=== PATIENT | female | born 1995 | race Caucasian/White ===

== ENCOUNTER 2018-03-18 14:00 | Emergency (ER) | payer OTHER ==
[2018-03-18 14:19] VITALS: O2SAT 100
--- NOTE | 2018-03-18 16:25 | C.PDOC ---
History Of Present Illness 22 year old female presents to the ED for evaluation of vulvar pain which began 3 days ago. Patient states she applied some cream/lotion to the vulvar area without help. She denies fever, chills, and being sexually active. Time Seen by Provider: 03/18/18 14:58 Chief Complaint (Nursing): GI Problem History Per: Patient History/Exam Limitations: no limitations Onset/Duration Of Symptoms: Days (3) Current Symptoms Are (Timing): Still Present Additional History Per: Patient Past Medical History Reviewed: Historical Data, Nursing Documentation, Vital Signs Vital Signs: Last Vital Signs Temp 97.7 F 03/18/18 14:17 Pulse 110 H 03/18/18 14:17 Resp 20 03/18/18 14:17 BP 123/86 03/18/18 14:17 Pulse Ox 100 03/18/18 14:17 - Medical History PMH: No Chronic Diseases Surgical History: No Surg Hx Family History: States: Unknown Family Hx - Social History Hx Alcohol Use: No Hx Substance Use: No Review Of Systems Constitutional: Negative for: Fever, Chills Genitourinary: Positive for: Other (vulvar pain ) Physical Exam - Physical Exam Appears: Non-toxic, No Acute Distress Skin: Normal Color, Warm, Dry Head: Atraumatic, Normacephalic Eye(s): bilateral: Normal Inspection Oral Mucosa: Moist Neck: Supple Chest: Symmetrical, No Deformity, No Tenderness Cardiovascular: Rhythm Regular, No Murmur Respiratory: Normal Breath Sounds, No Rales, No Rhonchi, No Wheezing Pelvic: No Normal Speculum Exam (deferred ), Vaginal Discharge (copious, watery white-blackwell ), Other (painful vessicular lesions, numbering from 40-50, to bilateral vulvar areas. 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 Patient declines visualization of the anal area. CG/Chlamydia swab and urinalysis ordered and reviewed. Tramadol PO given. Rocephin 250 IM, Azithro 1000 PO, Flagyl 500 PO, Motrin 600 PO. Initially, patient stated that she has not had any sexual relations. After evaluation by Dr. Ramsay ([employer] exchange underwriting consultant), patient admits she had one unprotexted sexual encounter for the first time. Patient is unable to specify when this encounter occurred. Reevaluation Time: 17:22 Reassessment Condition: Improved - Physician Consult Information Outcome Of Conversation: d/w OBGY Dr. Ramsay- evaluated pt and vulvar exam appreciated. Recommends complete STD tx. 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 Flagyl 500 mg PO BID x 7 days outpatient f/u with OBGYN Disposition Doctor Will See Patient In The: Office Counseled Patient/Family Regarding: Studies Performed, Diagnosis - Disposition Referrals: [employer] [facility] [Outside] [place] [facility] [place] [Outside] [facility] [Outside] [facility] [Outside] Disposition: HOME/ ROUTINE Disposition Time: 17:27 Condition: GOOD Additional Instructions: GC/Chlamydia You were treated with Rocephin 250 mg IM and Azithromycin 1000 mg by mouth This is complete treatment Bacterial Vaginosis: Vaginal Discharge Glagyl 500 mg twice a day for 7 days Genital Herpes: First outbreak Acyclovir 800 mg 5x/day for 10 days Pain: Motrin/Advil 600 mg every 6 hours as needed Tramadol 50 m-2 tabs every 4-6 hours as needed for more severe pain NO Sexual activity nor objects in vagina for 7 days Sexual Partner(s) must be also evaluated to risk re-contamination Follow-up with outpatient OBGYN Clinic for further testing as needed, ie: Syphilis, HIV, Hepatitis Prescriptions: Acyclovir [Zovirax] 800 mg PO 5XD 10 Days tablet metroNIDAZOLE [Flagyl] 500 mg PO BID #13 tab traMADol [Ultram] 50 mg PO Q6H #20 tab Instructions: Chlamydia and Gonorrhea, Genital Herpes (DC), Vaginal Discharge in Adults Forms: [employer] ([place]riac) - Clinical Impression Clinical Impression: Vulvar lesion, Vaginal discharge - Scribe Statement The provider has reviewed the documentation as recorded by the Scribe (Sary Gonzales) Provider Attestation: All medical record entries made by the Scribe were at my direction and personally dictated by me. I have reviewed the chart and agree that the record accurately reflects my personal performance of the history, physical exam, medical decision making, and the department course for this patient. I have also personally directed, reviewed, and agree with the discharge instructions and disposition.
[2018-03-18 16:38] LABS: HCG,QUALITATIVE URINE NEGATIVE (NEGATIVE)
[2018-03-18 16:39] LABS: SQUAMOUS EPITHIAL 2 /hpf (0-5); URINE BACTERIA OCC (<OCC); URINE BILIRUBIN NEGATIVE (NEGATIVE); URINE BLOOD NEGATIVE (NEGATIVE); URINE CLARITY Clear (Clear); URINE COLOR Straw (YELLOW); URINE GLUCOSE (UA) NORMAL (Normal); URINE LEUKOCYTE ESTERASE TRACE Leu/uL (Negative); URINE PROTEIN NEGATIVE (NEGATIVE); URINE UROBILINOGEN NORMAL mg/dL (0.2-1.0)
[2018-03-18] MEDS ORDERED: cefTRIAXone 250 MG, Water For Injection 20 ML IM ONE (17:13)
--- NOTE | 2018-03-18 17:46 | C.PDOC ---
History Of Present Illness 22 y/o nulliparous female presents with c/o vulva pain started on Tuesday after starting her menstrual period on Tuesday. She has no c/o vaginal discharge. 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 Says didn't do much with it since it was painful. Her boyfriend is coming from [place] and wanted to see if she have sex with out any fear. She also mentioned that she tried to have sex long time ago and also syas she is seeing the boy friend for the first time. She denied any sexual activity to the ER physician. Time Seen by Provider: 03/18/18 14:58 Chief Complaint (Nursing): GI Problem History Per: Patient History/Exam Limitations: other Onset/Duration Of Symptoms: Days Current Symptoms Are (Timing): Still Present Quality Of Discomfort: Sharp, Burning Recent travel outside of the [place]: No Additional History Per: Patient Abnormal Vaginal Bleeding: No Last Menstral Period: 03/10/18 : 0 Para: 0 Past Medical History Vital Signs: Last Vital Signs Temp 97.7 F 03/18/18 14:17 Pulse 110 H 03/18/18 14:17 Resp 20 03/18/18 14:17 BP 123/86 03/18/18 14:17 Pulse Ox 100 03/18/18 17:39 - Medical History PMH: No Chronic Diseases Surgical History: No Surg Hx Family History: States: Unknown Family Hx - Social History Hx Alcohol Use: No Hx Substance Use: No Review Of Systems Genitourinary: Positive for: Rash (pain and lesion in the vulva area) ED Course And Treatment - Laboratory Results Urine POC: Negative O2 Sat by Pulse Oximetry: 100 Disposition - Disposition Referrals: [facility] [Outside] [place] [facility] [place] [Outside] [facility] [Outside] [facility] [Outside] Disposition: HOME/ ROUTINE Condition: GOOD Additional Instructions: GC/Chlamydia You were treated with Rocephin 250 mg IM and Azithromycin 1000 mg by mouth This is complete treatment Bacterial Vaginosis: Vaginal Discharge Glagyl 500 mg twice a day for 7 days Genital Herpes: First outbreak Acyclovir 800 mg 5x/day for 10 days Pain: Motrin/Advil 600 mg every 6 hours as needed Tramadol 50 m-2 tabs every 4-6 hours as needed for more severe pain NO Sexual activity nor objects in vagina for 7 days Sexual Partner(s) must be also evaluated to risk re-contamination Follow-up with outpatient OBGYN Clinic for further testing as needed, ie: Syphilis, HIV, Hepatitis Prescriptions: Acyclovir [Zovirax] 800 mg PO 5XD 10 Days tablet metroNIDAZOLE [Flagyl] 500 mg PO BID #13 tab traMADol [Ultram] 50 mg PO Q6H #20 tab Instructions: Chlamydia and Gonorrhea, Genital Herpes (DC), Vaginal Discharge in Adults Forms: [employer] (Japanese) - Clinical Impression Clinical Impression: Vulvar lesion, Vaginal discharge
[2018-03-18 17:55] VITALS: BP 117/80; PULSE 90; RESP 18; TEMP 97.5
[2018-03-18] MEDS ORDERED: cefTRIAXone 250 MG in Water For Injection 0.9 ML IM ONE (18:00)
== END 2018-03-18 18:38 | disposition home or self-care (01) ==
LOC: C.ER 14:00
DX: N90.89 Other specified noninflammatory disorders of vulva and perineum (principal); N89.8 Other specified noninflammatory disorders of vagina